=== PATIENT | female | born 2000 | race African-American/Black ===

== ENCOUNTER 2019-04-08 09:15 | Emergency (ER) | payer MEDICAID ==
[~2019-04-08] VITALS: Ht 162.6 cm; Wt 70.8 kg
[2019-04-08 10:06] LABS: URINE BLOOD 3+ (Negative); URINE CLARITY CLOUDY; URINE COLOR YELLOW; URINE GLUCOSE-RANDOM NEGATIVE (Negative); URINE KETONES NEGATIVE (Negative); URINE LEUKOCYTES-REFLEX 1+ (Negative); URINE NITRITE-REFLEX NEGATIVE (Negative); URINE PROTEIN 2+ (Negative); URINE SPECIFIC GRAVITY 1.025 (1.005-1.030)
[2019-04-08 10:07] LABS: ICTOTEST (BILI CONFIRMATORY) Negative (Negative); URINE BILIRUBIN 1+ (Negative)
[2019-04-08 10:16] LABS: SQUAMOUS 0-3 Few /LPF (0-3)
[2019-04-08 10:17] LABS: URINE WBC-REFLEX >25 Many /HPF (0-5)
[2019-04-08 10:18] LABS: CASTS None Seen /LPF (None Seen); CRYSTALS None Seen /LPF (None Seen); MUCUS >6 Heavy strn/LPF (None Seen); URINE RBC 3-10 Few /HPF (0-2)
[2019-04-08] MEDS ORDERED: BACTRIM DS TAB1 EACH PO (11:04)
[2019-04-08] MEDS ORDERED: PHENAZOPYRIDIN200 M2 PO (11:04)
[2019-04-08 11:09] VITALS: BP 110/63
== END 2019-04-08 11:11 | disposition home or self-care (01) ==
LOC: M.ERS 09:15
PROVIDERS: Emergency Medicine Emergency Medical Services
DX: N39.0 Urinary tract infection, site not specified (principal)